=== PATIENT | female | born 1975 | race Caucasian/White ===

== ENCOUNTER 2018-09-28 10:32 | Outpatient (CLI) | payer MEDICARE ==
--- NOTE | 2018-09-28 14:01 | MRI ---
BRAIN MRI WITH AND WITHOUT CONTRAST: Date: 09/28/18 COMPARISON: 09/12/11. HISTORY: Multiple sclerosis. TECHNIQUE: Multiplanar, multisequence MR imaging of the brain provided with and without contrast. FINDINGS: The diffusion-weighted imaging demonstrates no evidence for acute infarction. There is mild diffuse cerebral volume loss. There is scattered mucosal thickening involving the bilateral frontal sinuses, ethmoid air cells, sph enoid sinuses, and the left maxillary sinus, new when compared to the 2011 examination. There is extensive abnormal increased T2 and FLAIR signal confluence throughout the periventricular, deep, and subcortical white matter bilaterally, not significantly changed when compared to the examination. There are foci of abnormal increased T2 and FLAIR signal noted within the mid brain i n the region of the cerebral peduncle on the right laterally, new. There is a new lesion within the v entral aspect of the gorge to the right of midline measuring 8.0 mm. Numerous lesions are noted within the region of the middle cerebellar peduncle and bilateral cerebellar hemispheres. There is a new le justino within the cerebellar hemisphere posteriorly on the left measuring 1.0 cm, and there are new les ions within the right cerebellar hemisphere measuring up to 1.0 cm. Two such new lesions are noted wi thin the right cerebellar hemisphere. Arterial flow-voids at the axial level of the skull base appear patent on the T2-weighted imaging. Postcontrast imaging is provided, demonstrating no abnormal enhancement. IMPRESSION: 1. Extensive white matter signal abnormality, consistent with the provided history of multiple scler osis. There are new lesions within the cerebellar hemispheres and the brainstem when compared to the prior exam performed in 2010. There is no intra-axial enhancement to suggest the presence of active d emyelination. 2. Paranasal sinus disease. POS: [facility]
== END 2018-09-28 10:33 | disposition home or self-care (01) ==
LOC: BICMRI 10:32
PROVIDERS: ATTEND Physician Assistant
DX: G35 Multiple sclerosis (principal); J32.9 Chronic sinusitis, unspecified
CPT/HCPCS: 70553

== ENCOUNTER 2019-08-06 08:55 | Emergency (ER) | payer OTHER, MEDICARE ==
[2019-08-06] MEDS ORDERED: Adacel (T-DAP) 0.5 ML SYRINGE ONE (09:58)
[2019-08-06] MEDS ORDERED: Lidocaine 4% Cream 5 GM TUBE w/ Tegaderm ONE (09:58)
[2019-08-06] MEDS ORDERED: Lidocaine 1% w/Epinephrine 1:100K 20 ML VIAL ONE (10:51)
[2019-08-06] MEDS ORDERED: Lidocaine 1% (PF) 30 ML VIAL ONE (10:53)
== END 2019-08-06 11:30 | disposition home or self-care (01) ==
LOC: ERS 08:55
DX: S01.111A Laceration without foreign body of right eyelid and periocular area, initial encounter (principal); F17.200 Nicotine dependence, unspecified, uncomplicated; W01.0XXA Fall on same level from slipping, tripping and stumbling without subsequent striking against object, initial encounter
CPT/HCPCS: 12051; 90715; J2001

== ENCOUNTER 2021-03-05 14:35 | Outpatient (CLI) | payer MEDICARE | END 2021-03-05 14:36 | disposition home or self-care (01) | LOC: BICMAMMO 14:35 | PROVIDERS: ATTEND Physician Assistant | DX: Z12.31 Encounter for screening mammogram for malignant neoplasm of breast (principal); N64.89 Other specified disorders of breast | CPT/HCPCS: 77063; 77067 ==

== ENCOUNTER 2021-03-07 14:29 | Outpatient (CLI) | payer MEDICARE | END 2021-03-07 14:30 | disposition home or self-care (01) | LOC: BICMAMMO 14:29 | PROVIDERS: ATTEND Physician Assistant | DX: R92.2 Inconclusive mammogram (principal) | CPT/HCPCS: 77065; G0279 ==

== ENCOUNTER 2024-11-12 15:21 | Outpatient (CLI) | payer BC | END 2024-11-12 15:22 | disposition home or self-care (01) | LOC: BICMAMMO 15:21 | PROVIDERS: ATTEND Physician Assistant | DX: Z12.31 Encounter for screening mammogram for malignant neoplasm of breast (principal) | CPT/HCPCS: 77063; 77067 ==

== ENCOUNTER 2025-07-06 13:23 | Outpatient (CLI) | payer BC, MEDICARE | END 2025-07-06 13:24 | disposition home or self-care (01) | PROVIDERS: ATTEND Physician Assistant | DX: G35 Multiple sclerosis (principal) ==